=== PATIENT | male | born 1970 | race Caucasian/White ===

== ENCOUNTER 2016-11-24 21:17 | Emergency (ER) | payer OTHER ==
[2016-11-24] MEDS ORDERED: GI COCKTAIL PO STA (21:20)
[2016-11-24 21:28] LABS: BASOPHILS # (AUTO) 0.1 K/uL (0-0.2); BASOPHILS % (AUTO) 1.1 % (0.0-3.0); EOSINOPHILS # (AUTO) 0.3 K/ul (0.0-0.7); EOSINOPHILS % (AUTO) 3.7 % (0.0-7.0); HEMATOCRIT 48.6 % (42.0-52.0); HEMOGLOBIN 16.7 g/dl (14.0-18.0); IMMATURE GRANULOCYTE % (AUTO) 0.3 % (0.0-5.0); LYMPHOCYTES # (AUTO) 3.8 K/uL (0.60-3.4); LYMPHOCYTES % (AUTO) 41.9 (10.0-50.0); MEAN CORPUSCULAR HEMOGLOBIN 30.8 pg (27.0-31.0); MEAN CORPUSCULAR HGB CONC 34.4 (31.8-35.4); MEAN CORPUSCULAR VOLUME 89.7 fl (80.0-94.0); MONOCYTES # (AUTO) 0.7 K/uL (0.4-2.0); MONOCYTES % (AUTO) 7.2 (0-10); NEUTROPHILS # (AUTO) 4.2 K/ul (2.0-6.9); NEUTROPHILS % (AUTO) 45.8; PLATELET COUNT 232 10^3/uL (140-440); RED BLOOD COUNT 5.42 10^6/ul (4.70-6.10); WHITE BLOOD COUNT 9.12 K/ul (4.2-10.2)
[2016-11-24 21:30] VITALS: BP 149/107; TEMP 96.9; BMI 32.5
[2016-11-24] MEDS ORDERED: ASPIRIN CHEWABLE PO STA (21:33)
[2016-11-24 22:01] LABS: ALBUMIN/GLOBULIN RATIO 1.05; BILIRUBIN,TOTAL 0.32 mg/dL (0.00-1.20); BUN/CREATININE RATIO 18.26; CALCIUM 9.3 mg/dL (8.2-10.2); CREATININE 1.04 mg/dL (0.60-1.10); TOTAL PROTEIN 7.8 g/dL (6.4-8.2); TROPONIN I 0.024 ng/ml (0.0000-0.4000)
[2016-11-24 22:02] LABS: CREATINE KINASE MB 2.6 ng/ml (0.0-3.6)
--- NOTE | 2016-11-24 23:20 | DI ---
EXAM: Chest one view HISTORY: Chest pain COMPARISON: None TECHNIQUE: Single view of the chest was performed FINDINGS: The lungs are clear. There is no pleural effusion or pneumothorax. The heart is normal in size. The mediastinal contour is normal. There are no acute abnormalities of the bones. IMPRESSION: No acute cardiopulmonary process.
--- NOTE | 2016-11-24 23:56 | ED.PDOC ---
General ED Provider: Dr. STEFFANY VASQUEZ Chief Complaint: Chest Pain Stated Complaint: Patient is a 46 year old male how comes to the ER with complaint of Mid-sternal chest pain that radiates to the right chest and right neck Time Seen by Physician: 21:20 Mode of Arrival: Walk-In Information Source: Patient Exam Limitations: No limitations Primary Care Provider: GIOVANNY JOSUE Nursing and Triage Documentation Reviewed and Agree: Yes Cardiovascular Complaint Exam - Chest Pain Complaint/Exam Onset: Gradual Duration: 15 min Symptoms Are: Still present Timing: Constant Initial Severity: Severe Current Severity: Moderate Location: Reports: Midsternal Pain Radiates: Reports: Right shoulder, Neck Character: Reports: Heaviness, Pressure Aggravating: Reports: None Alleviating: Reports: None Associated Signs and Symptoms: Denies: Diaphoresis, Nausea, Vomiting, Fever, Palpitations, Cough, Hemoptysis, Back pain, Abdominal pain, Dizziness, Short of air, Calf pain, Calf swelling TAD Risk Factors: Reports: None Prior Care for this Complaint: No Recent Stress Test: No Review of Systems - Review Of Systems Constitutional: Reports: No symptoms Eyes: Reports: No symptoms Ears, Nose, Mouth, Throat: Reports: No symptoms Respiratory: Reports: Short of air Cardiac: Reports: Chest pain GI: Reports: No symptoms : Reports: No symptoms Musculoskeletal: Reports: No symptoms Skin: Reports: No symptoms Neurological: Reports: Anxiety Endocrine: Reports: No symptoms Hematologic/Lymphatic: Reports: No symptoms All Other Systems: Reviewed and Negative Past Medical History - Past Medical History Endocrine: Reports: Hypothyroid, Dyslipidemia Cardiovascular: Reports: None Respiratory: Reports: None Hematological: Reports: None Gastrointestinal: Reports: None Genitourinary: Reports: None Neuro/Psych: Reports: None Musculoskeletal: Reports: None Cancer: Reports: None - Surgical History General Surgical History: Reports: None - Family History Family History: Reports: Heart - Social History Smoking Status: Current every day smoker, Light tobacco smoker Hx Substance Use: No Alcohol Screening: None - Immunizations Tetanus Shot up to Date: Yes Physical Exam - Physical Exam Appearance: Ill-appearing Critical Care Note - Critical Care Note Total Time (mins): 0 Course - Course Hematology/Chemistry: 11/24/16 21:20 11/24/16 21:20 Orders, Labs, Meds: Lab Review 11/24/16 11/24/16 21:20 23:25 WBC 9.12 RBC 5.42 Hgb 16.7 Hct 48.6 MCV 89.7 MCH 30.8 MCHC 34.4 RDW Coeff of Eliot 12.7 Plt Count 232 Immature Gran % (Auto) 0.3 Neut % (Auto) 45.8 Lymph % (Auto) 41.9 [place] % (Auto) 7.2 Eos % (Auto) 3.7 Baso % (Auto) 1.1 Immature Gran # (Auto) 0.0 Neut # 4.2 Lymph # 3.8 H [place] # 0.7 Eos # 0.3 Baso # 0.1 D-Dimer 352.27 H Sodium 137 Potassium 4.0 Chloride 102 Carbon Dioxide 21 Anion Gap 18.0 BUN 19 H Creatinine 1.04 Estimated GFR (MDRD) 77.00 BUN/Creatinine Ratio 18.26 Glucose 108 H Calcium 9.3 Total Bilirubin 0.32 AST 20 ALT 30 Alkaline Phosphatase 58 Total Creatine Kinase 173 153 CK-MB (CK-2) 2.6 2.4 CK-MB (CK-2) % 1.74820 1.37673 Troponin I 0.0240 < 0.0100 B-Natriuretic Peptide < 10 Total Protein 7.8 Albumin 4.0 Globulin 3.8 Albumin/Globulin Ratio 1.05 Orders Category Date Time Status EKG-(ED ONLY) Stat CARDIO 11/24/16 21:20 Completed ED APPLY O2 .ONCE EMERGENCY 11/24/16 21:20 Active ED IV/MEDIPORT/POWERPORT .ONCE EMERGENCY 11/24/16 21:20 Active B-TYPE NATRIURETIC PEPTIDE Stat LAB 11/24/16 21:20 Completed CBC W/ AUTO DIFF Stat LAB 11/24/16 21:20 Completed COMPREHENSIVE METABOLIC PANEL Stat LAB 11/24/16 21:20 Completed CPK [CREATINE KINASE] Stat LAB 11/24/16 23:25 Completed CREATINE KINASE Stat LAB 11/24/16 21:20 Completed D-DIMER Stat LAB 11/24/16 21:20 Completed TROPONIN I Stat LAB 11/24/16 21:20 Completed TROPONIN I Stat LAB 11/24/16 23:25 Completed 0.9 % Sodium Chloride [Saline Flush] MEDS 11/24/16 21:20 Discontinued 1 syr IVF PRN PRN Aspirin [Aspirin Chewable] MEDS 11/24/16 21:33 Discontinued 324 mg PO ONCE STA Mag-Al Plus//Lidocaine [Gi Cocktail] MEDS 11/24/16 21:20 Discontinued 30 ml PO ONCE STA CHEST, 1V AP ONLY Stat RADS 11/24/16 21:20 Completed Medications Discontinued Medications Generic Name Dose Route Start Last Admin Trade Name Freq PRN Reason Stop Dose Admin Al Hydroxide/Mg Hydroxide 30 ml 11/24/16 21:20 11/24/16 21:34 Gi Cocktail PO 11/24/16 21:21 30 ml ONCE STA Administration Aspirin 324 mg 11/24/16 21:33 11/24/16 21:36 Aspirin Chewable PO 11/24/16 21:34 324 mg ONCE STA Administration Sodium Chloride 1 syr 11/24/16 21:20 Saline Flush IVF PRN PRN To flush IV Vital Signs: Temp Pulse Resp BP Pulse Ox 11/24/16 21:18 96.9 F L 72 20 149/107 H 94 L ZHANG Risk Score Age >/= 65: No >/= 3 CAD Risk Factors: No Known CAD (Stenosis >/= 50%): No ASA Use in Past 7 Days: No Severe Angina (>/= 2 episodes in 24 hours): No EKG ST Changes >/= 0.5mm: No Postive Cardiac Marker: No ZHANG Total Score: 0 ZHANG Risk Score: Risk Score Odds of by 30D 0 0.1 (0.1-0.2) 1 0.3 (0.2-0.3) 2 0.4 (0.3-0.5) 3 0.7 (0.6-0.9) 4 1.2 (1.0-1.5) 5 2.2 (1.9-2.6) 6 3.0 (2.5-3.6) 7 4.8 (3.8-6.1) Departure - Departure Time of Disposition: 23:56 Disposition: HOME SELF-CARE Discharge Problem: Atypical chest pain GERD (gastroesophageal reflux disease) Qualifiers: Esophagitis presence: without esophagitis Qualifier Code: (K21.9) Gastro- esophageal reflux disease without esophagitis Instructions: Chest Pain (ED), Gastroesophageal Reflux Disease (ED) Condition: Good Pt referred to PMD for follow-up: Yes Additional Instructions: Take stomach medications as prescribed Follow up with PCP in 3 days Prescriptions: Pantoprazole Sodium [Protonix] 40 mg PO AC #30 tablet. Allergies/Adverse Reactions: Allergies No Known Allergies Allergy (Unverified 11/24/16 21:29) Home Medications: Ambulatory Orders Fenofibrate Nanocrystallized [Fenofibrate] 145 mg PO DAILY 11/24/16 Levothyroxine Sodium [Levo-T] 100 mcg PO DAILY 11/24/16 Pantoprazole Sodium [Protonix] 40 mg PO AC #30 tablet. 11/24/16 Disposition Discussed With: Patient, Family
[2016-11-25] LABS: CREATINE KINASE 153 U/L; CREATINE KINASE MB 2.4 ng/ml (0.0-3.6)
== END 2016-11-25 00:11 | disposition home or self-care (01) ==
LOC: ED 21:17
DX: R07.9 Chest pain, unspecified (principal); K21.9 Gastro-esophageal reflux disease without esophagitis; E78.5 Hyperlipidemia, unspecified; E03.9 Hypothyroidism, unspecified; F17.210 Nicotine dependence, cigarettes, uncomplicated
CPT/HCPCS: 36415; 80053; 82550; 82553; 83880; 84484; 85025; 85379; 93005; 93010; 96360; 96361; 99283

== ENCOUNTER 2018-01-18 09:10 | Emergency (ER) ==
[2018-01-18 09:10] VITALS: BMI 32.5
[2018-01-18 09:14] VITALS: TEMP 98.1
[2018-01-18 09:24] VITALS: BP 126/87
--- NOTE | 2018-01-18 09:52 | ED.PDOC ---
General ED Provider: Dr. TERRENCE MACIAS Chief Complaint: Respiratory Complaint Stated Complaint: Cough, dry, non productive. Chest felt heavy earlier today, sensation that cough needed to be productive but could could not expectorate sputum. C/O sore throat. Denies chills or sweats. Has been exposed to flu Time Seen by Physician: 10:15 Mode of Arrival: Walk-In Information Source: Patient Exam Limitations: No limitations Primary Care Provider: GIOVANNY JOSUE Nursing and Triage Documentation Reviewed and Agree: Yes Reviewed sepsis parameters & appropriate labs ordered?: Yes System Inflammatory Response Syndrome: Not Applicable Sepsis Protocol: For patient's 13 years and over: Temp is 96.8 and below OR 101 and greater Pulse >90 BPM Resp >20/minute Acutely Altered Mental Status Are patient's symptoms suggestive of a new infection, such as: -Pneumonia -Skin, Soft Tissue -Endocarditis -UTI -Bone, Joint Infection -Implantable Device -Acute Abdominal Infection -Wound Infection -Meningitis -Blood Stream Catheter Infection -Unknown System Inflammatory Response Syndrome: Not Applicable Respiratory Complaint Exam - Respiratory Complaint/Exam Symptoms Are: Still present Timing: Intermittent Initial Severity: Moderate Current Severity: Mild Location: Throat, Chest Character: Reports: Non-productive cough Aggravating: Reports: None Alleviating: Reports: None Associated Signs and Symptoms: Reports: Sore throat. Denies: Rapid breathing, Dyspnea, Fever, Chills, Chest pain, Pleuritic chest pain, Wheezing, Hemoptysis, Dizziness, Calf pain, Vomiting, Weight loss, Decreased oral intake, Increased thirst, Increased appetite, Increased urination Cardiac Risk Factors: Reports: None Pseudomonas Risk Factors: Reports: None Tuberculosis Risk Factors: Reports: None Status Asthmaticus Risk Factors: Reports: None Home Oxygen Use: No Recent Stress Test: No Recent Echo/LV Function: No Current Antibiotic Use: No Current Asthma Medication Use: No Respiratory Distress: None Inadequate Respiratory Effort: No Dysphagia Present: Yes Stridor Present: No JVD Present: No Accessory Muscle Use: No Diminished Breath Sounds: No Sinus Tenderness: None Grunting Respirations: No Kussmaul Respirations: No Differential Diagnoses: Bronchospasm, URI Review of Systems - Review Of Systems Constitutional: Reports: No symptoms Eyes: Reports: No symptoms Ears, Nose, Mouth, Throat: Reports: No symptoms, Throat pain Respiratory: Reports: Cough Cardiac: Reports: No symptoms GI: Reports: No symptoms : Reports: No symptoms Musculoskeletal: Reports: No symptoms Skin: Reports: No symptoms Neurological: Reports: No symptoms Endocrine: Reports: No symptoms Hematologic/Lymphatic: Reports: No symptoms All Other Systems: Reviewed and Negative Past Medical History - Past Medical History Endocrine: Reports: Hypothyroid, Dyslipidemia Cardiovascular: Reports: None Respiratory: Reports: None Hematological: Reports: None Gastrointestinal: Reports: None Genitourinary: Reports: None Neuro/Psych: Reports: None Musculoskeletal: Reports: None Cancer: Reports: None - Surgical History General Surgical History: Reports: None - Family History Family History: Reports: Heart - Social History Smoking Status: Current every day smoker, Light tobacco smoker Hx Substance Use: No Alcohol Screening: None Physical Exam - Physical Exam Appearance: Well-appearing Ill-appearing: None Pain Distress: None Eyes: NATHANIEL, EOMI, Conjunctiva clear, Conjunctiva inflammed ENT: Ears normal, Nose normal, Oropharynx normal Respiratory: Airway patent, Breath sounds clear, Breath sounds equal Cardiovascular: RRR, Pulses normal, No rub, No murmur GI/: Soft, Nontender, No masses, Bowel sounds normal, No Organomegaly Musculoskeletal: Normal strength, ROM intact, No edema, No calf tenderness Skin: Warm, Dry, Normal color Neurological: Sensation intact, Motor intact, Reflexes intact, Cranial nerves intact, Alert, Oriented Psychiatric: Affect appropriate, Mood appropriate Re-Evaluation - Re-Evaluation Time of Re-Evaluation: 11:15 Status: Unchanged Vital Signs Stable: Yes Appearance: NAD Neuro: Alert and Oriented X3 Additional Comments: No respiratory symptoms; Critical Care Note - Critical Care Note Total Time (mins): 0 Course - Course Hematology/Chemistry: 01/18/18 10:35 01/18/18 10:35 Orders, Labs, Meds: Lab Review 01/18/18 01/18/18 01/18/18 10:35 10:35 10:40 WBC 8.24 RBC 5.36 Hgb 16.8 Hct 47.8 MCV 89.2 MCH 31.3 H MCHC 35.1 RDW Coeff of Eliot 12.6 Plt Count 218 Immature Gran % (Auto) 0.4 Neut % (Auto) 63.0 Lymph % (Auto) 24.9 [place] % (Auto) 7.9 Eos % (Auto) 3.0 Baso % (Auto) 0.8 Immature Gran # (Auto) 0.0 Neut # (Auto) 5.2 Lymph # (Auto) 2.1 [place] # (Auto) 0.7 Eos # (Auto) 0.3 Baso # (Auto) 0.1 Sodium 139 Potassium 4.1 Chloride 106 Carbon Dioxide 23 Anion Gap 14.1 BUN 12 Creatinine 0.95 Estimated GFR (MDRD) 85.00 BUN/Creatinine Ratio 12.63 Glucose 96 Calcium 9.5 Total Bilirubin 0.6 AST 25 ALT 42 Alkaline Phosphatase 48 L Total Protein 7.6 Albumin 4.0 Globulin 3.6 Albumin/Globulin Ratio 1.11 Influ A Molecular Assay Negative by naat Influ B Molecular Assay Negative by naat Orders Category Date Time Status NEBULIZER TREATMENT Stat CARDIO 01/18/18 10:29 Completed CBC W/ AUTO DIFF Stat LAB 01/18/18 10:35 Completed CMP [COMPREHENSIVE METABOLIC PANEL] Stat LAB 01/18/18 10:35 Completed FLU A & B MOLECULAR [FLU A/B MOLECULAR] Stat LAB 01/18/18 10:40 Completed RAPID STREP SCREEN [MOLECULAR GROUP A STREP] Stat LAB 01/18/18 10:40 Completed Albuterol Sulfate 0.083% Neb [Albuterol 0.083% Neb] MEDS 01/18/18 10:29 Discontinued 1 vial NEB ONCE STA CHEST, 2 VIEWS PA & LAT Stat RADS 01/18/18 10:31 Completed Medications Discontinued Medications Generic Name Dose Route Start Last Admin Trade Name Freq PRN Reason Stop Dose Admin Albuterol Sulfate 1 vial 01/18/18 10:29 01/18/18 10:47 Albuterol 0.083% Neb NEB 01/18/18 10:30 1 vial ONCE STA Administration Vital Signs: Temp Pulse Resp BP Pulse Ox 01/18/18 09:11 98.1 F 92 H 20 126/87 96 Departure - Departure Time of Disposition: 11:30 Disposition: HOME SELF-CARE Discharge Problem: URI (upper respiratory infection) Instructions: Upper Respiratory Infection (ED) Condition: Pt referred to PMD for follow-up: Yes (1 week) IPMP verified?: No Allergies/Adverse Reactions: Allergies No Known Allergies Allergy (Verified 01/18/18 09:15) Home Medications: Ambulatory Orders Fenofibrate Nanocrystallized [Fenofibrate] 145 mg PO DAILY 11/24/16 Levothyroxine Sodium [Levo-T] 100 mcg PO DAILY 11/24/16 Transfer Form Completed: No (N/I) Disposition Discussed With: Patient (Remain on otc cough/cold meds/ Mucinex twice daily)
[2018-01-18] MEDS ORDERED: ALBUTEROL 0.083% NEB NEB STA (10:29)
--- NOTE | 2018-01-18 11:18 | DI ---
EXAM: PA and lateral views of the chest HISTORY: Cough. COMPARISON: Chest x-ray 11/24/2016 FINDINGS: The cardiomediastinal silhouette is normal. There is no pneumothorax or pleural effusion. There is no consolidation, nodule or mass. The osseous structures demonstrate degenerative disease of the spine. IMPRESSION: No acute cardiopulmonary process
== END 2018-01-18 12:02 | disposition home or self-care (01) ==
LOC: ED 09:10
DX: J06.9 Acute upper respiratory infection, unspecified (principal); R05 Cough; E03.9 Hypothyroidism, unspecified; E78.5 Hyperlipidemia, unspecified; F17.210 Nicotine dependence, cigarettes, uncomplicated
CPT/HCPCS: 36415; 80053; 85025; 87502; 87651; 94640; 99283